=== PATIENT | male | born 1950 | race Caucasian/White ===

== ENCOUNTER 2018-12-23 09:39 | Outpatient (CLI) | payer MEDICARE, BC, SELFPAY ==
[2018-12-23 10:10] LABS: Hemoglobin A1C 9.6 % (4.5-6.2)
[2018-12-23 11:08] LABS: CREATININE 0.98 mg/dL (0.70-1.30); Calculated LDL 140; Cholesterol 201 mg/dL (50-200); HDL Cholesterol 38 mg/dL (40-60); Potassium 4.2 mmol/L (3.5-5.1); Triglyceride 119 mg/dL (30-150)
== END 2018-12-23 09:59 ==
PROVIDERS: PCP Family Medicine; Visit Provider Family Medicine
DX: E11.9 Type 2 diabetes mellitus without complications (principal)
CPT/HCPCS: 36415; 80061; 83721; 82565; 83036; 84132

== ENCOUNTER → 2018-12-29 08:07 | Outpatient (BNVA) | payer MEDICARE, BC, SELFPAY | PROVIDERS: PCP Family Medicine; Referring Provider Family Medicine; Visit Provider Student in an Organized Health Care Education/Training Program | DX: M72.0 Palmar fascial fibromatosis [Dupuytren] (principal); M65.342 Trigger finger, left ring finger; M65.341 Trigger finger, right ring finger; E11.9 Type 2 diabetes mellitus without complications; Z79.84 Long term (current) use of oral hypoglycemic drugs | CPT/HCPCS: 99214 ==

== ENCOUNTER 2018-12-29 12:56 | Outpatient (CLI) | payer MEDICARE, BC, SELFPAY ==
--- NOTE | 2018-12-29 06:00 | DI.RAD_ITS ---
SYMPTOMS/DIAGNOSIS: SACROILIAC JOINT DYSFUNCTION PAIN CLINIC SACROILIAC JOINT: Fluoroscopy Time: 74.7 sec Fluoroscopy was utilized by Dr. Montaño during the performance of a left sacroiliac joint injection. Please refer to the procedure report for complete details.
[2018-12-29 13:45] VITALS: BP 143/91; PULSE 92; RESP 18; TEMP 35.9; O2SAT 99
[2018-12-29] MEDS: Omnipaque 240 MG/ML 50 ML BTL IJ (14:15)
[2018-12-29] MEDS: methylPREDNISolone ACETATE 80 MG/ML VIAL IJ (14:16)
[2018-12-29 14:17] VITALS: BP 153/88; PULSE 82; RESP 16; O2SAT 100
[2018-12-29] MEDS: Bupivacaine 0.5% Pres-Free 10 ML VIAL IJ (14:17)
--- NOTE | 2018-12-29 14:21 | PDOC.PAIN_ITS ---
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 COMMENTS: Patient had left SI injection in the past with good relief Patient was interviewed and the medical record reviewed. There were no medical, pharmacologic, radiographic or other structural contraindications to attempting fluoroscopically guided intra-articular SI joint injection. Risks and expected side effects as well as potential benefit of the procedure were reviewed and voiced concerns addressed. The printed consent form was signed and witnessed. Standard time-out procedure was performed. Patient was placed in the prone position on the fluoroscopy table and automated blood pressure cuff and pulse oximeter applied. The skin entry point for approaching { left } SI joints was identified under the most advantageous fluoroscopic view and marked. Following thorough Chlorhexadine preparation of the skin and draping and 1% lidocaine infiltration of the skin entry point and subcutaneous tissues, a 22 gauge spinal needle was placed under fluoroscopic guidance into { left/ } SI joints was identified under the most advantageous fluoroscopic view and marked. Following thorough Chlorhexadine preparation of the skin and draping and 1% lidocaine infiltration of the skin entry point and subcutaneous tissues, a 22 gauge spinal needle was placed under fluoroscopic guidance into { /left/ } SI joint. Intra-articular placement was confirmed by a clear arthrogram resulting from the injection of 0.25ml Omnipaque 240, 1ml 0.5% bupivacaine, and half ml (40mg) of 80mg concentration Depomedrol were injected intra-articularily with an initial reproduction of a significant component of the usual pain. Vital signs were stable throughout the procedure and were as recorded in the docflowsheet by the nursing staff. If given, dosages of intravenous drugs for anxiolysis and analgesia were documented in MAR. Follow up plans and appointments were discussed with the patient. Post procedure instruction was given as documented in nursing documentation and having met discharge criteria, and was discharged from the [facility]. COMMENTS: Pain went from 7/10 to 0/10. Follow-up as needed CC: Cristopher Smith MD
== END 2018-12-29 13:16 ==
PROVIDERS: PCP Family Medicine; Visit Provider Anesthesiology Pain Medicine
DX: M53.3 Sacrococcygeal disorders, not elsewhere classified (principal); M72.0 Palmar fascial fibromatosis [Dupuytren]; M65.342 Trigger finger, left ring finger; M65.341 Trigger finger, right ring finger; E11.9 Type 2 diabetes mellitus without complications; Z79.84 Long term (current) use of oral hypoglycemic drugs
CPT/HCPCS: 27096; 72200; 99214; J1040; Q9967

== ENCOUNTER 2019-02-03 08:52 | Day surgery (SDC) | payer MEDICARE, BC, SELFPAY ==
[2019-02-03 09:10] VITALS: BP 153/108; PULSE 82; RESP 16; TEMP 36.3; O2SAT 100
--- NOTE | 2019-02-03 09:25 | HOME_ITS ---
Home Ventilator Equipment Home care [employer] [facility] Reason: Obstructive Sleep Apnea Make: ResMed Model: Mask type: Nasal mask Mask size: Mode: BiPAP Settings: 16/6 Oxygen bleed in (lpm): 0 Condition: Good Date last checked: 02/03/19 Year of last sleep study: Compliance Daily Comments:
[2019-02-03] MEDS: Lactated Ringers 1,000 ML 80 ML IV (09:54)
[2019-02-03] MEDS: ceFAZolin 2 GM/50 ML BAG IVPB (09:58)
--- NOTE | 2019-02-03 10:06 | W.PM.DSUDISC ---
Documented by User: JOSTIN Soto 02/03/19 10:16 Discharge Plan Disposition Patient Disposition: HOME Condition: Good Discharge Details Reason For Visit: Spence Faciectomy left hand Attending Provider: Allan De Luna Primary Care Provider: Cristopher Smith Home Meds and New Rx's Prescriptions: New acetaminophen 500 mg tablet 500 mg PO Q6H PRN (Reason: pain) Qty: 30 RF: 1 hydrocodone-acetaminophen 5-325 mg tablet 1 tab PO Q6H PRN (Reason: pain) Qty: 6 RF: 0 Continued Fish Oil 300 MG capsule 300 mg PO DAILY RF: 0 cyclobenzaprine 10 MG tablet 10 mg PO HS PRNQty: 30 RF: 0 amlodipine-benazepril [Lotrel] 1 EACH capsule 1 ea PO DAILY Qty: 90 RF: 3 (DME) blood-glucose meter [FreeStyle [place]] kit See Dose Instructions .ROUTE .MEDSUPPLY Qty: 1 RF: 0 glyburide 5 mg tablet 2.5 mg PO BID Qty: 180 RF: 3 hydrochlorothiazide 12.5 mg tablet 12.5 mg PO DAILY Qty: 90 RF: 3 (DME) lancets [FreeStyle Lancets] 28 gauge misc 1 ea Miscellaneous DAILY Qty: 90 RF: 3 omeprazole 20 mg capsule,delayed release(DR/EC) 20 mg PO DAILY Qty: 90 RF: 3 venlafaxine 75 mg tablet extended release 24hr 150 mg PO DAILY Qty: 60 RF: 11 (DME) FreeStyle Lite Strips strip 1 ea Miscellaneous DAILY Qty: 90 RF: 3 metformin 500 mg tablet 1,000 mg PO BID Qty: 360 RF: 3 ginkgo biloba 60 MG capsule 30 mg PO DAILY RF: 0 Tumeric 300 mg PO DAILY RF: 0 Discharge Instructions Additional Instructions: Activity: You may use your fingers for light activity. You should limit any excessive motion or forceful gripping until the sutures have been removed. Dressings: You should keep the initial surgical dressing in place for at least 3 days. You may remove your dressings and get the wound wet after 3 days. You should keep the dressings and the wound clean at all times. You may keep the initial dressing in place until your follow-up but keep the wound covered with light gauze until the sutures are removed. Medications: - You should take Tylenol and Ibuprofen around the clock as prescribed or per photo studio assistant's recommendations. - You have Hydrocodone prescribed for breakthrough pain control. Take only as needed and limit use as much as possible. This may cause constipation. Follow-up: 7-10 days for wound check and suture removal. Referrals: Allan De Luna MD [ [facility] STAFF PHYSICIAN] - Activity:: Elevate Remove Dressings/Wound Care:: 72 hours Shower/Bathe:: 72 hours Diet:: As Tolerated Discharge Orders Discharge Orders: Discharge Order (Routine); Ordered 02/03/19 Ordered By: Allan De Luna DS: Diagnosis Discharge Diagnosis (1) Trigger finger, left middle finger: Status: Acute (2) Dupuytren's contracture of left hand: Status: Acute Documented by User: Allan De Luna MD 02/03/19 10:39 Discharge Plan Disposition Patient Disposition: HOME Condition: Good Discharge Details Reason For Visit: Spence Faciectomy left hand Attending Provider: Allan De Luna Primary Care Provider: Cristopher Smith Home Meds and New Rx's Prescriptions: New acetaminophen 500 mg tablet 500 mg PO Q6H PRN (Reason: pain) Qty: 30 RF: 1 hydrocodone-acetaminophen 5-325 mg tablet 1 tab PO Q6H PRN (Reason: pain) Qty: 6 RF: 0 Continued Fish Oil 300 MG capsule 300 mg PO DAILY RF: 0 cyclobenzaprine 10 MG tablet 10 mg PO HS PRNQty: 30 RF: 0 amlodipine-benazepril [Lotrel] 1 EACH capsule 1 ea PO DAILY Qty: 90 RF: 3 (DME) blood-glucose meter [FreeStyle [place]] kit See Dose Instructions .ROUTE .MEDSUPPLY Qty: 1 RF: 0 glyburide 5 mg tablet 2.5 mg PO BID Qty: 180 RF: 3 hydrochlorothiazide 12.5 mg tablet 12.5 mg PO DAILY Qty: 90 RF: 3 (DME) lancets [FreeStyle Lancets] 28 gauge misc 1 ea Miscellaneous DAILY Qty: 90 RF: 3 omeprazole 20 mg capsule,delayed release(DR/EC) 20 mg PO DAILY Qty: 90 RF: 3 venlafaxine 75 mg tablet extended release 24hr 150 mg PO DAILY Qty: 60 RF: 11 (DME) FreeStyle Lite Strips strip 1 ea Miscellaneous DAILY Qty: 90 RF: 3 metformin 500 mg tablet 1,000 mg PO BID Qty: 360 RF: 3 ginkgo biloba 60 MG capsule 30 mg PO DAILY RF: 0 Tumeric 300 mg PO DAILY RF: 0 Discharge Instructions Additional Instructions: Activity: You may use your fingers for light activity. You should limit any excessive motion or forceful gripping until the sutures have been removed. Dressings: You should keep the initial surgical dressing in place for at least 3 days. You may remove your dressings and get the wound wet after 3 days. You should keep the dressings and the wound clean at all times. You may keep the initial dressing in place until your follow-up but keep the wound covered with light gauze until the sutures are removed. Medications: - You should take Tylenol and Ibuprofen around the clock as prescribed or per photo studio assistant's recommendations. - You have Hydrocodone prescribed for breakthrough pain control. Take only as needed and limit use as much as possible. This may cause constipation. Follow-up: 7-10 days for wound check and suture removal. Referrals: Allan De Luna MD [ [facility] STAFF PHYSICIAN] - Activity:: Elevate Remove Dressings/Wound Care:: 72 hours Shower/Bathe:: 72 hours Diet:: As Tolerated Discharge Orders Discharge Orders: Discharge Order (Routine); Ordered 02/03/19 Ordered By: Allan De Luna DS: Diagnosis Discharge Diagnosis (1) Trigger finger, right ring finger: Status: Acute
[2019-02-03] MEDS: Sodium Bicarbonate 50 MEQ/50 ML VIAL (10:08)
[2019-02-03] MEDS: Lidocaine 1% Multi-Dose 50 ML VIAL (10:08)
[2019-02-03] MEDS: methylPREDNISolone ACETATE 80 MG/ML VIAL (10:30)
[2019-02-03] MEDS: Bupivacaine 0.5% Pres-Free 30 ML VIAL (10:30)
[2019-02-03 11:10] VITALS: BP 131/91; PULSE 66; RESP 16; TEMP 35.8; O2SAT 97
--- NOTE | 2019-02-04 06:02 | W.PM.OP ---
Date of service: 02/03/19 Time of Service: 12:03 Operative Note DATE OF PROCEDURE: 02/03/19 PRE-OP DIAGNOSIS: Left RF trigger finger, left palmar Dupuytren's disease, right RF trigger POST-OP DIAGNOSIS: same PROCEDURE: Left ring finger trigger release, left hand partial palmar fasciectomy, right ring finger trigger injection SURGEON: Allan De Luna ANESTHESIA: GETA and local ESTIMATED BLOOD LOSS: 5 PATHOLOGY: none sent TOURNIQUET TIME: 10 COMPLICATIONS: None Patient was transported to: same day Patient's condition: stable Indications: I have seen Hardeep in clinic for symptoms of a trigger finger. He has had multiple before. The catching, clicking, locking, and pain limited function. The diagnosis of trigger finger was evident. He also had superimposed Dupuytren's contracture of both hands but worse on the left side. The left hand is his primary dog hand which he uses to hold the hand on the leash with his visual a dog. I discussed trigger finger release and partial palmar fasciectomy with the patient. I reviewed the risks of the procedure to include, but not limited to, bleeding, infection, pain, stiffness, incomplete release, damage to nerves or vessels, continued catching, recurrence. Despite these risks, the patient elected to proceed. He also desire to try an injection on the right ring finger which I agreed to perform during the surgical time. Findings: There was a tightened A1 chase which was released. The flexor tendons were inspected and the patient was able to move the finger without any catching, clicking, or locking. Procedure Description: Jose Juan was greeted in the preoperative holding area where the correct side was identified and marked. The consent was reviewed with the patient and signed. All questions were answered. He was taken back to the operating room. The patient was placed into the supine position on the operating room table with the left arm on an arm board. All bony prominences were well padded. Cefazolin was administered as prophylactic antibiotics given his history of infections and diabetes. A nonsterile tourniquet was placed high up on the left arm. The left arm was then prepped with Chloraprep and draped in a standard fashion with stockinette and extremity drape. A timeout to confirm correct identity, side and site, procedure, allergies, anesthesia, and medical concerns was performed. The surgical site was marked with a Solitario type incision starting at the A1 chase of the involved digit and proceeding proximally for the extent of the palpable cord. This area was then anesthetized with 1% Lidocaine. The skin was incised. The deep tissues were dissected bluntly. The primary central cord was easily identifiable immediately underneath the skin. Dissection was carried just below the dermis in order to expose the entirety of the cord. It was then apparent that there was 3 primary central cords into natatory cords in this area. They were followed to their proximal point which was a common origin. Once his common point proximally was identified it was transected. I then worked from proximal to distal elevating the cords from the overlying skin and underlying soft tissue attachments. Care was taken not to dive deep and possibly injure neurovascular bundles. The cords were followed all the way to their proximal extent at the level of the A1 chase. This was then transected and removed from the wound and block. There is no other palpable cord at this time and no puckering of the skin. I then exposed the A1 chase distally. The soft tissue including neurovascular structures were retracted medially and laterally. There were no crossing structures over the A1 chase. The proximal edge of the chase was identified and the chase was incised with tenotomy scissors. There was a release of the tendons once this was fully released. The tendons were then removed from the wound and inspected. The wound was then irrigated and the skin was closed with a 4-0 Nylon. This was dressed with gauze and a Conform dressing. I then prepared the right hand for trigger injection. The site of the A1 chase over the metacarpal head of the right ring finger was identified and marked. The skin was prepped with alcohol. Using a 25-gauge needle I then injected 0.5 cc of 0.5% bupivacaine with 40 mg of Depo-Medrol into the A1 chase and flexor tendon sheath of the right ring finger. There is minimal bleeding. A Band-Aid was applied. The patient tolerated the procedure well and was returned to the PACU in a stable condition suffering no known complication.
== END 2019-02-03 11:30 | disposition home or self-care (01) ==
PROVIDERS: PCP Family Medicine; Visit Provider Student in an Organized Health Care Education/Training Program
PROC: (CPT 26055; principal; 2019-02-03 10:00)
PROC: (CPT 26055; 2019-02-03 10:00)
PROC: (CPT 26055; 2019-02-03 10:00)
DX: M65.342 Trigger finger, left ring finger (principal); M65.341 Trigger finger, right ring finger; M72.0 Palmar fascial fibromatosis [Dupuytren]; I10 Essential (primary) hypertension; G47.33 Obstructive sleep apnea (adult) (pediatric); K21.9 Gastro-esophageal reflux disease without esophagitis
CPT/HCPCS: 26055; 20550; 26123; J0690; J1040; J2405

== ENCOUNTER → 2019-02-11 08:57 | Outpatient (BNVA) | payer MEDICARE, BC, SELFPAY | PROVIDERS: PCP Family Medicine; Referring Provider Family Medicine; Visit Provider Student in an Organized Health Care Education/Training Program | DX: Z47.89 Encounter for other orthopedic aftercare (principal); M72.0 Palmar fascial fibromatosis [Dupuytren]; M65.341 Trigger finger, right ring finger; M65.342 Trigger finger, left ring finger; I10 Essential (primary) hypertension; E11.9 Type 2 diabetes mellitus without complications ==

== ENCOUNTER 2019-03-25 11:33 | Outpatient (CLI) | payer MEDICARE, BC, SELFPAY ==
[2019-03-25 13:06] LABS: Hemoglobin A1C 8.7 % (4.5-6.2)
== END 2019-03-25 11:53 ==
PROVIDERS: PCP Family Medicine; Visit Provider Family Medicine
DX: E11.9 Type 2 diabetes mellitus without complications (principal)
CPT/HCPCS: 36415; 83036

== ENCOUNTER → 2019-09-30 09:54 | Outpatient (BNVA) | payer MEDICARE, BC, SELFPAY | PROVIDERS: PCP Family Medicine; Referring Provider Family Medicine; Visit Provider Student in an Organized Health Care Education/Training Program | DX: M65.341 Trigger finger, right ring finger (principal); M72.0 Palmar fascial fibromatosis [Dupuytren] | CPT/HCPCS: 99213 ==

== ENCOUNTER 2019-10-04 08:22 | Day surgery (SDC) | payer MEDICARE, BC, SELFPAY ==
--- NOTE | 2019-10-03 17:40 | PDOC.ANES ---
Date of service: 10/03/19 Time of Service: 17:20 Anesthesia Note Report Anesthesia Note: Called to speak with Mr. Crooks in regards to possibly rescheduling her elective surgery. I explained that he is in a higher risk group if she was to contract MITRA-CoV-2/COVID 19. I explained that it has been recommended for higher risk groups to remain at home to minimize exposure to the virus. He understands the risk and would like to proceed as scheduled.
[2019-10-04 08:34] VITALS: BP 132/90; PULSE 88; RESP 18; TEMP 36.7; O2SAT 98
--- NOTE | 2019-10-04 09:55 | W.PM.DSUDISC ---
Discharge Plan Disposition Patient Disposition: HOME Condition: Good Discharge Details Reason For Visit: RRF Trigger and Dupuytren's Attending Provider: Allan De Luna Primary Care Provider: Cristopher Smith Home Meds and New Rx's Prescriptions: New hydrocodone-acetaminophen 5-325 mg tablet 1 tab PO Q8H PRN PRN (Reason: pain) Qty: 6 RF: 0 acetaminophen 500 mg tablet 500 mg PO Q6H PRN PRN (Reason: pain) Qty: 90 RF: 3 ibuprofen 600 mg tablet 600 mg PO TID PRNQty: 60 RF: 3 Continued Prevnar 13 (PF) 0.5 mL syringe 0.5 ml IM ONCE Qty: 0.5 RF: 0 amlodipine-benazepril [Lotrel] 5-20 mg capsule 1 cap PO DAILY Qty: 90 RF: 3 glyburide 5 mg tablet 2.5 mg PO BID Qty: 90 RF: 3 Fish Oil 300 MG capsule 300 mg PO DAILY RF: 0 cyclobenzaprine 10 MG tablet 10 mg PO HS PRNQty: 30 RF: 0 (DME) blood-glucose meter [FreeStyle [place]] kit See Dose Instructions .ROUTE .MEDSUPPLY Qty: 1 RF: 0 hydrochlorothiazide 12.5 mg tablet 12.5 mg PO DAILY Qty: 90 RF: 3 (DME) lancets [FreeStyle Lancets] 28 gauge misc 1 ea Miscellaneous DAILY Qty: 90 RF: 3 omeprazole 20 mg capsule,delayed release(DR/EC) 20 mg PO DAILY Qty: 90 RF: 3 venlafaxine 75 mg tablet extended release 24hr 150 mg PO DAILY Qty: 60 RF: 11 metformin 500 mg tablet 1,000 mg PO BID Qty: 360 RF: 3 (DME) blood sugar diagnostic [FreeStyle Lite Strips] Strip 1 ea Miscellaneous DAILY Qty: 90 RF: 3 ginkgo biloba 60 MG capsule 30 mg PO DAILY RF: 0 Tumeric 300 mg PO DAILY RF: 0 Discharge Instructions Stand Alone Forms: [place] Finger Release Referrals: Allan De Luna MD [ [facility] STAFF PHYSICIAN] - Activity:: Elevate Remove Dressings/Wound Care:: 48 hours Shower/Bathe:: 48 hours Diet:: As Tolerated Discharge Orders Discharge Orders: Discharge Order (Routine); Ordered 10/04/19 Ordered By: Allan De Luna DS: Diagnosis Discharge Diagnosis (1) Dupuytren's contracture of right hand: Status: Acute (2) Trigger finger, right ring finger: Status: Acute
[2019-10-04] MEDS: Sodium Bicarbonate 50 MEQ/50 ML VIAL (10:07)
--- NOTE | 2019-10-06 11:41 | W.PM.OP ---
Date of service: 10/04/19 Time of Service: 13:41 Operative Note Operative Note DATE OF PROCEDURE: 10/04/19 PRE-OP DIAGNOSIS: Right Ring Finger Trigger Finger, Right Palmar Dupuytren's Contracture POST-OP DIAGNOSIS: same PROCEDURE: Trigger Finger Release - Right Ring Finger; Partial Palmar Fasciectomy - Right SURGEON: Allan De Luna ANESTHESIA: local ESTIMATED BLOOD LOSS: 5 PATHOLOGY: none sent TOURNIQUET TIME: 0 COMPLICATIONS: None Patient was transported to: same day Patient's condition: stable Indications: I have seen Jose Juan in clinic for symptoms of a trigger finger and Dupuytren's contracture. The catching, clicking, locking, stiffness, and pain limited function. The diagnosis of trigger finger was evident as well as a prominent central cord from Dupuytren's contracture. The symptoms had not responded to conservative measures. I discussed trigger finger release along with partial palmar fasciectomy with the patient. I reviewed the risks of the procedure to include, but not limited to, bleeding, infection, pain, stiffness, incomplete release, damage to nerves or vessels, continued catching, recurrence, wound healing difficulties. Despite these risks, the patient elected to proceed. Findings: There was a tightened A1 chase which was released. The flexor tendons were inspected and the patient was able to move the finger without any catching, clicking, or locking. There is a palpable central cord extending from the level of the A1 chase towards the palmar fascia. This was resected and whole. Any connections between this cord and other fibrous tissue were resected as well. Procedure Description: Jose Juan was greeted in the preoperative holding area where the correct side was identified and marked. The consent was reviewed with the patient and signed. All questions were answered. He was taken back to the operating room. The patient was placed into the supine position on the operating room table with the right arm on an arm board. All bony prominences were well padded. No prophylactic antibiotics were administered since this was a clean, elective hand surgical case. The right arm was then prepped with Chloraprep and draped in a standard fashion with stockinette and extremity drape. A timeout to confirm correct identity, side and site, procedure, allergies, anesthesia, and medical concerns was performed. The surgical site was marked as a Solitario type incision directly over the A1 chase of the involved digit and extending proximally over the central cord. This was confirmed with palpation during finger flexion. This area was then anesthetized with 1% Lidocaine with epinephrine and buffered with sodium bicarbonate. The patient tolerated this well and once the anesthetic had setup, the procedure began. Incision was made through skin only, approximately 2cm. The central cord was first identified. It was sharply dissected from the overlying skin and subcutaneous tissue. The cord was followed distally towards the A1 chase. It was released distally and then dissection was carried around the cord proximally. All connective tissues to the cord were resected. Any other bandlike tissue were also sharply dissected. Soft tissue overlying the cord was also removed and it was pulled and then transected proximally at the level of the palmar aponeurosis. Next, the deep tissues were dissected bluntly. Once the A1 chase and flexor tendons were identified the soft tissue including neurovascular structures were retracted medially and laterally. There were no crossing structures over the A1 chase. The proximal edge of the chase was identified and the chase was incised with tenotomy scissors. There was a release of the tendons once this was fully released. The tendons were then removed from the wound and inspected. Excess synovium was resected. The tendons were then returned and the patient was asked to move the finger into deep flexion and back to extension. There was no recreation of the pre-operative symptoms. The hand was then once more inspected for any A0 chase or area of possible constriction. The wound was then irrigated and the skin was closed with 4-0 Nylon. This was dressed with gauze and a Conform dressing. The patient tolerated the procedure well and was returned to the Same Day Surgery area in a stable condition suffering no known complication.
== END 2019-10-04 10:45 | disposition home or self-care (01) ==
PROVIDERS: PCP Family Medicine; Visit Provider Student in an Organized Health Care Education/Training Program
PROC: (CPT 26055; principal; 2019-10-04 10:00)
PROC: (CPT 26045; 2019-10-04 10:00)
DX: M72.0 Palmar fascial fibromatosis [Dupuytren] (principal); M65.341 Trigger finger, right ring finger
CPT/HCPCS: 26123; 26055

== ENCOUNTER → 2019-10-14 09:43 | Outpatient (BNVA) | payer MEDICARE, BC, SELFPAY | PROVIDERS: PCP Family Medicine; Referring Provider Family Medicine; Visit Provider Student in an Organized Health Care Education/Training Program | DX: Z47.89 Encounter for other orthopedic aftercare (principal); M72.0 Palmar fascial fibromatosis [Dupuytren]; M65.341 Trigger finger, right ring finger ==

== ENCOUNTER 2020-03-02 04:38 | Outpatient (CLI) | payer MEDICARE, BC, SELFPAY ==
[2020-03-02 12:16] LABS: Hemoglobin A1C 8.5 % (3.8-5.6)
[2020-03-02 12:37] LABS: Microalb ug/mg Crea 10.1 ug/mg Cr
[2020-03-02 12:47] LABS: CREATININE 1.08 mg/dL (0.70-1.30); Potassium 3.8 mmol/L (3.5-5.1); TSH (W/Ref FT4) 1.99 uIU/mL (0.36-3.74)
[2020-03-02 13:28] LABS: Vitamin B12 287 pg/mL (193-986)
[2020-03-05 11:21] LABS: Syphilis Serology (RPR) Negative (Negative)
[2020-03-06 09:00] LABS: Methylmalonic Acid 0.23 nmol/mL (<=0.40)
== END 2020-03-02 04:58 ==
PROVIDERS: PCP Family Medicine; Visit Provider Family Medicine
DX: I10 Essential (primary) hypertension (principal); E03.9 Hypothyroidism, unspecified; E11.65 Type 2 diabetes mellitus with hyperglycemia; E53.8 Deficiency of other specified B group vitamins; R41.3 Other amnesia; D64.9 Anemia, unspecified
CPT/HCPCS: 80186; 82043; 82565; 82570; 82607; 83036; 84132; 84443; 86592

== ENCOUNTER 2020-04-19 10:41 | Outpatient (CLI) | payer MEDICARE, BC, SELFPAY ==
[2020-04-19 10:50] VITALS: BP 117/99; PULSE 80; RESP 16; TEMP 36.4; O2SAT 98
[2020-04-19 11:15] VITALS: BP 143/81; PULSE 83; RESP 14; O2SAT 100
--- NOTE | 2020-04-19 11:18 | DI.RAD_ITS ---
EXAM: XR PAIN CLINIC SACRIOILIAC 2V CLINICAL HISTORY: Dx: Sacroiliac joint dysfunction. TECHNIQUE: Fluoroscopy was provided for the referring physician for guidance with performing injecti on procedure. COMPARISON: No exams were available for comparison FINDINGS: Please see procedure note for details. Fluoro time: 19.5 sec, 3.22 mGy RADIATION DOSE DELIVERED:
[2020-04-19] MEDS: methylPREDNISolone ACETATE 80 MG/ML VIAL (11:19)
[2020-04-19] MEDS: Omnipaque 240 MG/ML 50 ML BTL IJ (11:19)
--- NOTE | 2020-04-19 11:20 | PDOC.PAIN_ITS ---
Pain Clinic Procedure Note Procedure Note Procedure Note: INTRA-ARTICULAR SI JOINT INJECTION OMAR PARRA has been referred to the [facility] for intra- articular SI joint injection. COMMENTS: He has done very well with this procedure in the past DX: Sacroiliac joint dysfunction Patient was interviewed and the medical record reviewed. There were no medical, pharmacologic, radiographic or other structural contraindications to attempting fluoroscopically guided intra-articular SI joint injection. Risks and expected side effects as well as potential benefit of the procedure were reviewed and voiced concerns addressed. The printed consent form was signed and witnessed. Standard time-out procedure was performed. Patient was placed in the prone position on the fluoroscopy table and automated blood pressure cuff and pulse oximeter applied. The skin entry point for approaching left SI joint was identified under the most advantageous fluoroscopic view and marked. Following thorough Chlorhexadine preparation of the skin and draping and 1% lidocaine infiltration of the skin entry point and subcutaneous tissues, a 22 gauge spinal needle was placed under fluoroscopic guidance into the left SI joint was identified under the most advantageous fluoroscopic view and marked. Following thorough Chlorhexadine preparation of the skin and draping and 1% lidocaine infiltration of the skin entry point and subcutaneous tissues, a 22 gauge spinal needle was placed under fluoroscopic guidance into left SI joint. Intra-articular placement was confirmed by a clear arthrogram resulting from the injection of 0.25ml Omnipaque 240, 1ml 1% lidocaine, and 40mg Depomedrol were injected intra-articularily with an initial reproduction of a significant component of the usual pain. The needle was flushed with 1 cc of 1% Lidocaine and removed without difficulty. Vital signs were stable throughout the procedure and were as recorded in the docflowsheet by the nursing staff. If given, dosages of intravenous drugs for anxiolysis and analgesia were documented in MAR. Follow up plans and appointments were discussed with the patient. Post procedure instruction was given as documented in nursing documentation and having met discharge criteria, and was discharged from the [facility] Management Center. COMMENTS: This procedure can be completed up to 3 times per 12 months if it continues to proved effective. Casey Hearn DO, MPH Pain Management CC: Cristopher Smith MD
== END 2020-04-19 11:01 ==
PROVIDERS: PCP Family Medicine; Visit Provider Preventive Medicine Occupational Medicine
DX: M53.3 Sacrococcygeal disorders, not elsewhere classified (principal)
CPT/HCPCS: 27096; 72200; J1040; Q9967

== ENCOUNTER 2021-12-24 01:56 | Outpatient (CLI) | payer MEDICARE, BC, SELFPAY ==
[2021-12-24 08:14] LABS: Hemoglobin A1C 7.3 % (<5.7)
[2021-12-24 09:18] LABS: CREATININE 0.9 mg/dL (0.70-1.30); Calculated LDL 139 mg/dL (<100); Cholesterol 201 mg/dL (<200); HDL Cholesterol 45 mg/dL (40-60); Potassium 4.3 mmol/L (3.5-5.1); Triglyceride 89 mg/dL (<150)
== END 2021-12-24 01:57 | disposition home or self-care (01) ==
PROVIDERS: PCP Family Medicine; Visit Provider Family Medicine
DX: I10 Essential (primary) hypertension (principal); E78.5 Hyperlipidemia, unspecified; R73.9 Hyperglycemia, unspecified
CPT/HCPCS: 36415; 80061; 82565; 83036; 84132

== ENCOUNTER 2022-01-09 07:10 | Outpatient (CLI) | payer MEDICARE, BC, SELFPAY ==
--- NOTE | 2022-01-09 06:00 | DI.RAD_ITS ---
Exam(s) XR PAIN CLINIC SACRIOILIAC 2V EXAM: XR PAIN CLINIC SACRIOILIAC 2V CLINICAL HISTORY: Dx: Sacroiliac Joint Dysfunction. TECHNIQUE: Fluoroscopy was provided for the referring physician for guidance with performing pain cl inic injection procedure. COMPARISON: No exams were available for comparison FINDINGS: SI joint injection. Please see procedure note for details. Fluoro time: 18.8 seconds RADIATION DOSE DELIVERED: Ka,r=3.73 mGy
[2022-01-09 07:21] VITALS: BP 157/94; PULSE 77; RESP 20; TEMP 36.9; O2SAT 100
--- NOTE | 2022-01-09 07:49 | PDOC.PAIN_ITS ---
Pain Clinic Procedure Note Procedure Note Procedure Note: INTRA-ARTICULAR SI JOINT INJECTION Jose Juan Crooks has been referred [facility] the [facility] for intra- articular SI joint injection. COMMENTS: No contrast used due to global shortage. Hem A1c was 7.3 on 12/24/21. Pre-procedure pain VAS was 7/10. He last had this on 04/19/2020 with excellent results for >1 year. Dx: Sacroiliac joint dysfunction Patient was interviewed and the medical record reviewed. There were no medical, pharmacologic, radiographic or other structural contraindications to attempting fluoroscopically guided intra-articular SI joint injection. Risks and expected side effects as well as potential benefit of the procedure were reviewed and voiced concerns addressed. The printed consent form was signed and witnessed. Standard time-out procedure was performed. Patient was placed in the prone position on the fluoroscopy table and automated blood pressure cuff and pulse oximeter applied. The skin entry point for approaching the bilateral SI joints was identified under the most advantageous fluoroscopic view and marked. Following thorough Chlorhexadine preparation of the skin and draping and 1% lidocaine infiltration of the skin entry point and subcutaneous tissues, a 22 gauge spinal needle was placed under fluoroscopic guidance into the bilateral SI joints was identified under the most advantageous fluoroscopic view and marked. Intra-articular placement was confirmed by a clear arthrogram resulting from the injection of 0.25ml Omnipaque 240, 1ml 1% lidocaine, and 40mg Depomedrol were injected intra-articularily with an initial reproduction of a significant component of the usual pain. Vital signs were stable throughout the procedure and were as recorded in the docflowsheet by the nursing staff. If given, dosages of intravenous drugs for anxiolysis and analgesia were documented in MAR. Follow up plans and appointments were discussed with the patient. Post procedure instruction was given as documented in nursing documentation and having met discharge criteria, and was discharged from the [facility]. COMMENTS: Post-procedure pain VAS 0/10. Casey Hearn DO, MPH [facility] Management [facility] CC: Cristopher Smith MD
[2022-01-09] MEDS: methylPREDNISolone ACETATE 80 MG/ML VIAL IJ (07:59)
[2022-01-09 08:00] VITALS: BP 171/82; PULSE 72; RESP 14; O2SAT 100
== END 2022-01-09 07:11 | disposition home or self-care (01) ==
LOC: PC 07:11
PROVIDERS: PCP Family Medicine; Visit Provider Preventive Medicine Occupational Medicine
DX: M53.3 Sacrococcygeal disorders, not elsewhere classified (principal)
CPT/HCPCS: 27096; 72200; J1040